=== PATIENT | female | born 1990 | race Caucasian/White ===

== ENCOUNTER 2018-12-10 11:52 | Emergency (ER) | payer MEDICAID ==
[~2018-12-10] VITALS: Ht 157.5 cm; Wt 66.3 kg
[~2018-12-10 11:52] MED LIST: HYDR-3498 PO
[2018-12-10 11:55] VITALS: Ht 157.5 cm; Wt 66.3 kg
[2018-12-10] MEDS ORDERED: LORAZEPAM 0.5 MG TAB PO ONE (13:00)
[2018-12-10] MEDS ORDERED: CIPR500T4 PO (14:27)
[2018-12-10] MEDS ORDERED: HYDR-3029 PO (14:28)
[2018-12-10 14:39] VITALS: BP 118/64; PULSE 82; RESP 16
--- NOTE | 2018-12-10 15:34 | ERD ---
ER Documentation Chief Complaint Chief Complaint episode of tachypneic/numb tingling feeling to mouth/hands/ dizziness HPI 28-year-old female presenting with facial tingling and numbness to her hands bilaterally. She states feels occasionally dizzy and has intermittent palpitations. States is been going on for the last 2 hours. History of anxiety in the past. Denies shortness of breath or chest pain. Has nausea but no vomiting. No abdominal pain. No bowel movement changes. Denies medical problems. NKDA. Surgical history cholecystectomy. Social history denies ROS All systems reviewed and are negative except as per history of present illness. Medications Home Meds Active Scripts Hydroxyzine Hcl* (Hydroxyzine Hcl*) 10 Mg Tablet, 10 MG PO Q6H PRN for ANXIETY, #30 TAB Prov:JIMMIE LU PA-C 12/10/18 Ciprofloxacin Hcl* (Ciprofloxacin Hcl*) 500 Mg Tablet, 500 MG PO BID for 7 Days, TAB Prov:JIMMIE LU PA-C 12/10/18 Hydrocodone Bit/Acetaminophen (Anexsia 5-325 Mg Tablet) 1 Tab Tab, 1 TAB PO Q4H PRN for pain, #30 Prov:ROSCOE TAVAREZ 01/05/15 Allergies Allergies: Coded Allergies: No Known Allergy (Verified , 01/03/15) PMhx/Soc Medical and Surgical Hx: pt denies Medical Hx History of Surgery: Yes (Bhakti) Anesthesia Reaction: No Hx Neurological Disorder: No Hx Respiratory Disorders: No Hx Cardiac Disorders: No Hx Psychiatric Problems: No Hx Miscellaneous Medical Probl: No Hx Alcohol Use: No Hx Substance Use: No Hx Tobacco Use: No Smoking Status: Never smoker FmHx Family History: No diabetes, No coronary disease, No other Physical Exam Vitals Vital Signs Date Temp Pulse Resp B/P (MAP) Pulse Ox O2 O2 Flow FiO2 Time Delivery Rate 12/10/18 82 16 118/64 100 Room Air 14:39 (82) 12/10/18 99.0 99 20 126/57 100 11:55 (80) Physical Exam GENERAL: The patient is well-appearing, well-nourished, in no acute distress HEENT: Atraumatic. Conjunctivae are pink. Pupils equal, round, and reactive to light. There is no scleral icterus. Tympanic membranes clear bilaterally. Oropharynx clear. NECK: C-spine is soft and supple. There is no meningismus. There is no cervical lymphadenopathy. CHEST: Clear to auscultation bilaterally. There are no rales, wheezes or rhonchi. HEART: Regular rate and rhythm. No murmurs, clicks, rubs or gallops. ABDOMEN:Soft, nontender and nondistended. Good bowel sounds. No rebound or guarding. No gross peritonitis. No gross organomegaly or masses. No Tate sign or McBurney point tenderness. Result Diagram: 12/10/18 1313 12/10/18 1313 Results 24 hrs Laboratory Tests Test 12/10/18 13:13 12/10/18 13:17 White Blood Count 5.2 10^3/ul Red Blood Count 4.55 10^6/ul Hemoglobin 13.4 g/dl Hematocrit 40.6 % Mean Corpuscular Volume 89.2 fl Mean Corpuscular Hemoglobin 29.5 pg Mean Corpuscular Hemoglobin Concent 33.0 g/dl Red Cell Distribution Width 12.2 % Platelet Count 183 10^3/UL Mean Platelet Volume 10.1 fl Immature Granulocytes % 0.400 % Neutrophils % 62.8 % Lymphocytes % 26.4 % Monocytes % 7.1 % Eosinophils % 2.9 % Basophils % 0.4 % Nucleated Red Blood Cells % 0.0 /100WBC Immature Granulocytes # 0.020 10^3/ul Neutrophils # 3.3 10^3/ul Lymphocytes # 1.4 10^3/ul Monocytes # 0.4 10^3/ul Eosinophils # 0.2 10^3/ul Basophils # 0.0 10^3/ul Nucleated Red Blood Cells # 0.0 10^3/ul Urine Color YELLOW Urine Clarity SLIGHTLY CLOUDY Urine pH 6.0 Urine Specific [place] 1.006 Urine Ketones NEGATIVE mg/dL Urine Nitrite NEGATIVE mg/dL Urine Bilirubin NEGATIVE mg/dL Urine Urobilinogen NEGATIVE mg/dL Urine Leukocyte Esterase 3+ Juan/ul Urine Microscopic RBC 7 /HPF Urine Microscopic WBC 24 /HPF Urine Squamous Epithelial Cells FEW /HPF Urine Bacteria FEW /HPF Urine Mucus FEW /HPF Urine Hemoglobin 1+ mg/dL Urine Glucose NEGATIVE mg/dL Urine Total Protein NEGATIVE mg/dl Sodium Level 143 mmol/L Potassium Level 3.9 mmol/L Chloride Level 107 mmol/L Carbon Dioxide Level 27 mmol/L Anion Gap 9 Blood Urea Nitrogen 12 mg/dl Creatinine 0.76 mg/dl Est Glomerular Filtrat Rate mL/min > 60 mL/min Glucose Level 87 mg/dl Calcium Level 10.2 mg/dl Total Bilirubin 0.4 mg/dl Direct Bilirubin 0.00 mg/dl Indirect Bilirubin 0.4 mg/dl Aspartate Amino Transf (AST/SGOT) 68 IU/L Alanine Aminotransferase (ALT/SGPT) 111 IU/L Alkaline Phosphatase 77 IU/L Total Protein 8.5 g/dl Albumin 4.9 g/dl Globulin 3.60 g/dl Albumin/Globulin Ratio 1.36 POC Beta HCG, Qualitative NEGATIVE Current Medications Medications Dose Sig/Graeme Start Time Status Last (Trade) Ordered Route PRN Stop Time Admin Dose Reason Admin Lorazepam 0.5 mg ONCE ONCE 12/10/18 DC 12/10/18 (Ativan) PO 13:00 13:22 12/10/18 13:02 Procedures/MDM EKG: Rate/Rhythm: 85 bpm Normal Sinus Rhythm QRS, ST, T-waves: No changes consistent w/ acute ischemia Impression: No evidence of ischemia or arrhythmia MDM: 28-year-old female presenting with chest pain. Patient symptoms may be associated with anxiety as EKG is within normal limits and patient's exam is non-concerning. Vitals stable. Patient does have findings with urinary tract infection. I have low suspicion for pyelonephritis. I have low suspicion for acute abdominal emergency. Patient is discharged with strict ER precautions and told to follow-up with primary care within 1-2 days for close evaluation. All questions answered at discharge Departure Diagnosis: Primary Impression: UTI (urinary tract infection) Condition: Stable Patient Instructions: Understanding Urinary Tract Infections (UTIs), Anxiety Reaction Referrals: [facility] YOU HAVE RECEIVED A MEDICAL SCREENING EXAM AND THE RESULTS INDICATE THAT YOU DO NOT HAVE A CONDITION THAT REQUIRES URGENT TREATMENT IN THE EMERGENCY DEPARTMENT. FURTHER EVALUATION AND TREATMENT OF YOUR CONDITION CAN WAIT UNTIL YOU ARE SEEN IN YOUR DOCTORS OFFICE WITHIN THE NEXT 1-2 DAYS. IT IS YOUR RESPONSIBILITY TO MAKE AN APPOINTMENT FOR FOLOW-UP CARE. IF YOU HAVE A PRIMARY DOCTOR --you should call your primary doctor and schedule an appointment IF YOU DO NOT HAVE A PRIMARY DOCTOR YOU CAN CALL OUR PHYSICIAN REFERRAL HOTLINE AT IF YOU CAN NOT AFFORD TO SEE A PHYSICIAN YOU CAN CHOSE FROM THE FOLLOWING [facility] [id number] [facility] [id number] [facility] [facility] [address] [facility] [address] [facility] [address] [facility] [facility] [address] Additional Instructions: FOLLOW UP WITH YOUR PRIMARY CARE PHYSICIAN TOMORROW.Return to this facility if you are not improving as expected. JIMMIE LU PA-C Dec 10, 2018 15:34
== END 2018-12-10 14:39 | disposition home or self-care (01) ==
LOC: FTE 11:52
DX: N39.0 Urinary tract infection, site not specified (principal)
CPT/HCPCS: 36415; 80053; 81001; 81025; 85025; 93005; Z7502; Z7610